=== PATIENT | male | born 1955 | race Caucasian/White ===

== ENCOUNTER 2017-09-02 06:49 | Emergency (ER) | payer OTHER ==
[~2017-09-02] VITALS: Ht 185.4 cm; Wt 77.1 kg
[2017-09-02 07:12] LABS: ABSOLUTE LYMPHOCYTES 1.3 thou/uL (0.8-5.3); ABSOLUTE MONOCYTES 0.7 thou/uL (0.0-1.2); ABSOLUTE NEUTROPHILS 8.2 thou/uL (1.6-8.1); BASOPHILS 0.4 %; HEMATOCRIT 41.5 % (42.0-52.0); HEMOGLOBIN 14.4 gm/dL (14.0-18.0); LYMPHOCYTES 12.9 %; MCH 36.6 pg (26.0-34.0); MCHC 34.6 g/dL (28.0-37.0); MCV 105.7 fL (80.0-100.0); MONOCYTES 6.4 %; MPV 8.6 fl. (7.2-11.1); NUCLEATED RBCS 0 /100WBC; PLATELET COUNT* 155 thou/uL (150-400); POLYS 80.3 %; RBC 3.92 mil/uL (4.50-6.00); RDW-CV 11.7 % (10.5-14.5); WBC 10.2 thou/uL (4.0-11.0)
[2017-09-02 07:20] LABS: ANION GAP 12 mmol/L (7-16); BUN 4 mg/dL (7-18); CHLORIDE 91 mmol/L (98-107); CO2 22 mmol/L (21-32); CREATININE 0.4 mg/dL (0.6-1.3); GLUCOSE 95 mg/dL (70-99); SODIUM 125 mmol/L (136-145)
[2017-09-02 07:23] LABS: INR 1.1; PROTIME 10.3 Seconds (9.20-11.50)
[2017-09-02 07:31] LABS: ALBUMIN 3.2 g/dL (3.4-5.0); ALKALINE PHOSPHATASE 138 U/L (46-116); LIPASE 118 U/L (73-393); NT-PRO BRAIN NAT PEPTIDE 41 pg/mL (<300); SGOT 76 U/L (15-37); SGPT 57 U/L (30-65); TOTAL BILIRUBIN 0.7 mg/dL (<0.1-1.0); TOTAL PROTEIN 6.9 g/dL (6.4-8.2); TROPONIN-I LEVEL <0.06 ng/mL (<0.06)
[2017-09-02] MEDS ORDERED: PREDNISONE 20 M20 M1 PO (08:58)
[2017-09-02] MEDS ORDERED: VENTOLIN HFA 1818 GM INH (08:58)
[2017-09-02] MEDS ORDERED: PERCOCET 5-3251 EACH PO (08:58)
[2017-09-02 09:06] VITALS: BP 128/82
--- NOTE | 2017-09-02 14:51 | EKG ---
[place] [address] ELECTROCARDIOGRAM REPORT Name: MARIA C NOONAN [facility]ahraa#: [id number] Admission: 09/02/17 Attend Phys: Discharge: 09/02/17 Date of : 55 Report #: [id number] THIS REPORT FOR: //name// [facility] ED Test Date: 2017-09-02 Test Time: 06:53:12 Pat Name: MARIA C AMORMER Department: Room: Gender: M Card Lacer: KARLEE : 1955 Requested By: Mariah Pinedo Order Number: [id number] MD: Casa Meyers Measurements Intervals Sandy Rate: 95 P: 68 MN: 163 QRS: 64 QRSD: 91 T: 70 QT: 387 QTc: 487 Interpretive Statements Sinus rhythm Anteroseptal infarct, old Compared to ECG 08/18/2016 15:18:06 Sinus tachycardia no longer present Myocardial infarct finding still present Electronically Signed On 09-02-2017 14:51:27 CDT by Casa Meyers [email or web address] <ELECTRONICALLY SIGNED> By: Casa Meyers MD, [facility] 09/02/17 [id number] Casa Meyers MD, [facility] /EPI
== END 2017-09-02 09:06 | disposition home or self-care (01) ==
LOC: M.ERS 06:49
PROVIDERS: Emergency Medicine
DX: M10.9 Gout, unspecified (principal); R55 Syncope and collapse; R06.00 Dyspnea, unspecified; F10.129 Alcohol abuse with intoxication, unspecified; F17.210 Nicotine dependence, cigarettes, uncomplicated